=== PATIENT | male | born 1985 | race American Indian/Alaskan Native ===

== ENCOUNTER 2017-04-06 07:05 | Emergency (ER) | payer OTHER ==
[2017-04-06 07:06] VITALS: BMI 21.8
[2017-04-06 07:23] VITALS: RESP 20; O2SAT 98
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
--- NOTE | 2017-04-06 10:40 | US ---
HISTORY: pain TECHNIQUE: Realtime sonography through the scrotum with color and doppler flow. COMPARISON: None Available. FINDINGS: RIGHT TESTICLE: Measures 5.0 x 2.2 x 3.2 cm. Normal echotexture and flow. RIGHT EPIDIDYMIS: Normal size and morphology. LEFT TESTICLE: Measures 4.3 x 1.7 x 2.8 cm. Normal echotexture and flow. LEFT EPIDIDYMIS: Normal size and morphology. Incidental left epididymal cyst, 2 x 2 x 3 mm. HYDROCELE: None. VARICOCELE: Mild left varicocele noted. OTHER FINDINGS: None. IMPRESSION: Mild left varicocele. 3 mm left epididymal cyst. Otherwise unremarkable examination. No evidence of testicular torsion. No evidence of epididymo-orchitis.
[2017-04-06 10:46] LABS: URINE BILIRUBIN NEGATIVE (NEGATIVE); URINE BLOOD NEGATIVE (NEGATIVE); URINE COLOR Straw (YELLOW); URINE GLUCOSE (UA) NORMAL (Normal); URINE KETONE NEGATIVE (NEGATIVE); URINE LEUKOCYTE ESTERASE NEG Leu/uL (Negative); URINE PROTEIN NEGATIVE (NEGATIVE); URINE UROBILINOGEN NORMAL mg/dL (0.2-1.0); WBC URINE < 1 /hpf (0-5)
[2017-04-06 11:09] VITALS: BP 103/69; PULSE 64; TEMP 97.9
== END 2017-04-06 11:17 | disposition home or self-care (01) ==
LOC: C.ER 07:05
DX: N50.812 Left testicular pain (principal); Z72.0 Tobacco use

== ENCOUNTER 2017-07-30 02:31 | Emergency (ER) | payer MEDICAID, OTHER ==
--- NOTE | 2017-07-30 02:39 | C.PDOC ---
History Of Present Illness The patient is brought to the ED via EMS for evaluation after finding the patient publicly intoxicated. Patient reports he was drinking all day yesterday and admits to PCP use. He denies any suicidal or homicidal ideation. He offers no additional medical complaints. Time Seen by Provider: 07/30/17 02:38 History Per: Patient History/Exam Limitations: intoxication Onset/Duration Of Symptoms: Hrs Current Symptoms Are (Timing): Still Present Suicide/Self Injury Attempted (Context): None Modifying Factor(s): Alcohol, Other (PCP) Associated Symptoms: denies: Suicidal Thoughts, Suicidal Plan Involuntary Hold By: None Recent travel outside of the [place]: No Additional History Per: EMS Past Medical History Reviewed: Historical Data, Nursing Documentation, Vital Signs Vital Signs: Last Vital Signs Temp 97.4 F L 07/30/17 02:45 Pulse 70 07/30/17 02:45 Resp 20 07/30/17 02:45 BP 108/65 07/30/17 02:45 Pulse Ox 96 07/30/17 02:45 - Medical History PMH: No Chronic Diseases Denies: Depression, Chronic Kidney Disease Surgical History: No Surg Hx - [facility] Procedures INJECT/INFUSE NEC (12/10/14) Family History: States: No Known Family Hx - Social History Hx Tobacco Use: Yes Hx Alcohol Use: Yes Hx Substance Use: Yes (Abuses PCP) - Immunization History Hx Tetanus Toxoid Vaccination: No Hx Influenza Vaccination: No Hx Pneumococcal Vaccination: No Review Of Systems Constitutional: Negative for: Fever Cardiovascular: Negative for: Chest Pain Gastrointestinal: Negative for: Abdominal Pain Psych: Positive for: Other (Alcohol and PCP use). Negative for: Suicidal ideation Physical Exam - Physical Exam Appears: Other (visibly intoxicated) Skin: Warm, Dry Head: Normacephalic Eye(s): bilateral: Normal Inspection Oral Mucosa: Moist, Other (alcohol on breath) Neck: Supple Chest: Symmetrical Cardiovascular: Rhythm Regular Respiratory: No Rales, No Rhonchi, No Wheezing Gastrointestinal/Abdominal: Bowel Sounds, Soft, No Tenderness Neurological/Psych: Oriented x3, Normal Speech, Normal Cognition Gait: Steady ED Course And Treatment O2 Sat by Pulse Oximetry: 96 Pulse Ox Interpretation: Normal ED OBSERVATION Discharge: Yes Date of observation admission: 07/30/17 Time of observation admission: 02:39 - Observation admission statement Patient is being placed in observation because:: Patient acutely intoxicated - Goals of Observation Goals of observation are:: Pending clinical sobriety - Progress Note Progress Note: 07/30/17 03:09 Vitals stable. 07/30/17 05:06 Vitals stable. Disposition Counseled Patient/Family Regarding: Studies Performed, Diagnosis, Need For Followup - Disposition Referrals: [facility] at [facility] [Outside] Disposition: HOME/ ROUTINE Disposition Time: 02:39 Condition: FAIR Instructions: Alcohol Intoxication (DC) - Clinical Impression Clinical Impression: Alcohol intoxication, PCP (phencyclidine) abuse - Scribe Statement The provider has reviewed the documentation as recorded by the Kyle Cruz Provider Attestation: All medical record entries made by the Kyle were at my direction and personally dictated by me. I have reviewed the chart and agree that the record accurately reflects my personal performance of the history, physical exam, medical decision making, and the department course for this patient. I have also personally directed, reviewed, and agree with the discharge instructions and disposition.
[2017-07-30 02:40] VITALS: BMI 19.5
[2017-07-30 02:49] VITALS: RESP 20
[2017-07-30 06:13] VITALS: BP 136/78; PULSE 78; TEMP 97.6; O2SAT 100
== END 2017-07-30 07:27 | disposition home or self-care (01) ==
LOC: C.ER 02:31
DX: F10.129 Alcohol abuse with intoxication, unspecified (principal); F19.10 Other psychoactive substance abuse, uncomplicated

== ENCOUNTER 2017-09-02 02:38 | Emergency (ER) | payer OTHER ==
[2017-09-02 02:38] VITALS: BMI 19.5
[2017-09-02 02:54] VITALS: TEMP 97.8
--- NOTE | 2017-09-02 03:10 | C.PDOC ---
History Of Present Illness 31 year old male presents to the ED for evaluation of right-sided testicular pain which began this evening. Patient states his symptoms began after he lifted something heavy. Patient denies any other associated symptoms at this time. Patient has had multiple prior visits for the same complaints. Patient has history of alcohol and PCP abuse. R TEST PAIN THIS EVENING. PS ONSET AFTER LIFTING. NO OTHER ASSOC SX. MULT PRIOR ER VISITS FOR SAME COMPLAINTS. HO ETOH, PCP ABUSE EXAM VANDANA BAKER. NO TEST SWELL, NO HERNIA; TEST NORMAL LIE. NO INGUINAL SWELL, NONTEND. REMAINDER NEG Time Seen by Provider: 09/02/17 03:01 Chief Complaint (Nursing): Male Genitourinary History Per: Patient History/Exam Limitations: no limitations Onset/Duration Of Symptoms: Hrs Current Symptoms Are (Timing): Still Present Quality Of Discomfort: "Pain" Associated Symptoms: denies: Fever, Chills Additional History Per: Patient Past Medical History Reviewed: Historical Data, Nursing Documentation, Vital Signs Vital Signs: Last Vital Signs Temp 97.8 F 09/02/17 02:49 Pulse 73 09/02/17 02:49 Resp 18 09/02/17 02:49 BP 119/68 09/02/17 02:49 Pulse Ox 97 09/02/17 03:10 - Medical History PMH: No Chronic Diseases Surgical History: No Surg Hx - [facility] Procedures INJECT/INFUSE NEC (12/10/14) Family History: States: Unknown Family Hx - Social History Hx Tobacco Use: Yes Hx Alcohol Use: Yes Hx Substance Use: Yes (Abuses PCP) - Immunization History Hx Tetanus Toxoid Vaccination: No Hx Influenza Vaccination: No Hx Pneumococcal Vaccination: No Review Of Systems Constitutional: Negative for: Fever, Chills Genitourinary: Positive for: Other (right-sided testicular pain ) Physical Exam - Physical Exam Appears: Non-toxic, No Acute Distress Skin: Normal Color, Warm, Dry Eye(s): bilateral: Normal Inspection Oral Mucosa: Moist Neck: Supple Chest: Symmetrical, No Deformity Cardiovascular: Rhythm Regular Respiratory: Normal Breath Sounds Gastrointestinal/Abdominal: Soft, No Guarding, No Rebound, No Hernia Male Genital: Normal Inspection, No Testicular Tenderness, No Testicular Swelling, No Inguinal Tenderness, No Inguinal Swelling, Other (VANDANA baker. no hernia ) Neurological/Psych: Oriented x3, Normal Speech, Normal Cognition Gait: Steady ED Course And Treatment O2 Sat by Pulse Oximetry: 97 (on RA ) Pulse Ox Interpretation: Normal Progress - Data Reviewed Data Reviewed: Old records Disposition Counseled Patient/Family Regarding: Diagnosis, Need For Followup - Disposition Referrals: [facility] [Outside] [facility] [Outside] Disposition: HOME/ ROUTINE Disposition Time: 03:10 Condition: GOOD Instructions: Groin Strain (ED) Forms: [employer] (French) - Clinical Impression Clinical Impression: Groin strain - Scribe Statement The provider has reviewed the documentation as recorded by the Scribe (Tosha Montano) Provider Attestation: All medical record entries made by the Scribe were at my direction and personally dictated by me. I have reviewed the chart and agree that the record accurately reflects my personal performance of the history, physical exam, medical decision making, and the department course for this patient. I have also personally directed, reviewed, and agree with the discharge instructions and disposition.
[2017-09-02 03:34] VITALS: BP 118/70; PULSE 80; RESP 14; O2SAT 98
== END 2017-09-02 03:34 | disposition home or self-care (01) ==
LOC: C.ER 02:38
DX: S39.011A Strain of muscle, fascia and tendon of abdomen, initial encounter (principal); X50.0XXA Overexertion from strenuous movement or load, initial encounter

== ENCOUNTER 2017-11-17 00:29 | Emergency (ER) | payer MEDICAID, MEDICARE, OTHER ==
[2017-11-17 00:29] VITALS: BMI 21.8
[2017-11-17 00:44] VITALS: BP 131/82; PULSE 95; TEMP 98.7; O2SAT 98
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
[2017-11-17] MEDS ORDERED: Amoxicillin-Clav 500-125 mg Tab PO ONE (01:48)
[2017-11-17 02:02] VITALS: RESP 18
== END 2017-11-17 02:02 | disposition home or self-care (01) ==
LOC: C.ER 00:29
DX: S01.512D Laceration without foreign body of oral cavity, subsequent encounter (principal); Y04.0XXD Assault by unarmed brawl or fight, subsequent encounter

== ENCOUNTER 2018-02-18 12:05 | Emergency (ER) | payer SELFPAY ==
[2018-02-18 12:05] VITALS: BMI 21.8
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
[2018-02-18 15:47] VITALS: BP 128/76; PULSE 76; RESP 18; TEMP 98; O2SAT 98
== END 2018-02-18 16:01 | disposition home or self-care (01) ==
LOC: C.ER 12:05
DX: R51 Headache (principal); Z59.0 Homelessness

== ENCOUNTER 2018-05-10 17:28 | Emergency (ER) | payer SELFPAY ==
[2018-05-10 17:28] VITALS: BMI 21.8
[2018-05-10 17:58] VITALS: BP 124/80; PULSE 63; RESP 20; TEMP 97.9; O2SAT 100
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
== END 2018-05-10 18:34 ==
LOC: C.ER 17:28
DX: S30.1XXA Contusion of abdominal wall, initial encounter (principal); Y08.89XA Assault by other specified means, initial encounter; Y92.89 Other specified places as the place of occurrence of the external cause; Z65.3 Problems related to other legal circumstances

== ENCOUNTER 2018-05-27 23:21 | Emergency (ER) | payer SELFPAY ==
[2018-05-27 23:22] VITALS: BMI 21.8
[2018-05-27 23:35] VITALS: BP 121/72; PULSE 61; TEMP 97.8
[2018-05-28 00:09] VITALS: RESP 20; O2SAT 98
--- NOTE | 2018-06-01 11:30 | C.PDOC ---
History Of Present Illness LWOBS Time Seen by Provider: 05/27/18 23:51 Chief Complaint (Nursing): Medical Clearance Past Medical History Vital Signs: Last Vital Signs Temp 97.8 F 05/28/18 00:08 Pulse 61 05/28/18 00:08 Resp 20 05/28/18 00:08 BP 121/72 05/28/18 00:08 Pulse Ox 98 06/01/18 12:34 - Medical History PMH: Denies: Depression, Chronic Kidney Disease - [facility] Procedures INJECT/INFUSE NEC (12/10/14) Family History: States: Unknown Family Hx - Social History Hx Tobacco Use: Yes Hx Alcohol Use: No Hx Substance Use: No (PT DENIES) - Immunization History Hx Tetanus Toxoid Vaccination: No Hx Influenza Vaccination: No Hx Pneumococcal Vaccination: No ED Course And Treatment O2 Sat by Pulse Oximetry: 98 Disposition - Disposition Disposition: LEFT W/O BEING SEEN - ER ONLY Forms: [employer] (Wolof)
== END 2018-05-28 00:12 | disposition left against medical advice (07) ==
LOC: C.ER 23:21
DX: Z02.89 Encounter for other administrative examinations (principal); Z00.00 Encounter for general adult medical examination without abnormal findings
CPT/HCPCS: 82948; LWBS0

== ENCOUNTER 2018-08-30 06:39 | Emergency (ER) | payer SELFPAY ==
[2018-08-30 06:40] VITALS: BMI 21.8
[2018-08-30 07:38] LABS: BASO # 0.1 K/uL (0.0-0.2); BASO % 0.7 % (0.0-2.0); EOS # 0.4 K/uL (0.0-0.7); HEMOGLOBIN 14.3 g/dL (12.0-18.0); LYMPH % 42.9 % (20.0-40.0); MEAN CELL VOLUME 86.2 fL (80.0-94.0); MEAN CORPUSCULAR HEMOGLOBIN 28.6 pg (27.0-31.0); MEAN CORPUSCULAR HGB CONC 33.1 g/dL (33.0-37.0); MONO # 0.6 K/uL (0.0-0.8); MONO % 8.4 % (0.0-10.0); NRBC % 0.1 % (0.0-2.0); RBC 5.01 Mil/uL (4.40-5.90); RED CELL DISTRIBUTION WIDTH 14.4 % (11.5-14.5)
--- NOTE | 2018-08-30 07:46 | C.PDOC ---
History Of Present Illness 32 y/o homeless male, with no significant PMH, BIBA for evaluation of chest pain. Per EMS, patient was drinking, the police called when he tried to break into someone's car to sleep. Police attempted to arrest him. Patient states that he was not drinking, he was tired and was trying to find a place to rest. Denies having SOB, fever, chills, nausea, vomiting, and leg swelling. Time Seen by Provider: 08/30/18 07:06 Chief Complaint (Nursing): Chest Pain History Per: Patient, EMS History/Exam Limitations: no limitations Onset/Duration Of Symptoms: Hrs Current Symptoms Are (Timing): Still Present Severity: Moderate Past Medical History Reviewed: Historical Data, Nursing Documentation, Vital Signs Vital Signs: Last Vital Signs Temp 97.7 F 08/30/18 06:49 Pulse 61 08/30/18 07:09 Resp 20 08/30/18 06:49 BP 109/73 08/30/18 06:49 Pulse Ox 97 08/30/18 06:49 - Medical History PMH: No Chronic Diseases Denies: Depression, Chronic Kidney Disease Surgical History: No Surg Hx - [facility] Procedures INJECT/INFUSE NEC (12/10/14) Family History: States: No Known Family Hx - Social History Hx Tobacco Use: Yes Hx Alcohol Use: Yes Hx Substance Use: Yes - Immunization History Hx Tetanus Toxoid Vaccination: No Hx Influenza Vaccination: No Hx Pneumococcal Vaccination: No Review Of Systems Constitutional: Negative for: Fever, Chills Cardiovascular: Positive for: Chest Pain Respiratory: Negative for: Cough, Shortness of Breath Gastrointestinal: Negative for: Nausea, Vomiting Physical Exam - Physical Exam Appears: Non-toxic, No Acute Distress Skin: Normal Color, Warm, Dry Head: Atraumatic, Normacephalic Eye(s): bilateral: Normal Inspection Nose: Normal Oral Mucosa: Moist Neck: Supple Chest: Symmetrical Cardiovascular: Rhythm Regular Respiratory: Normal Breath Sounds, No Rales, No Rhonchi, No Wheezing Gastrointestinal/Abdominal: Normal Exam, Soft, No Tenderness, No Guarding, No Rebound Extremity: Normal ROM Neurological/Psych: Oriented x3, Normal Speech Gait: Steady ED Course And Treatment - Laboratory Results Result Diagrams: 08/30/18 07:27 08/30/18 07:27 ECG: Interpreted By Me, Viewed By Me ECG Rhythm: Sinus Bradycardia Rate From EC O2 Sat by Pulse Oximetry: 97 (RA) Pulse Ox Interpretation: Normal Medical Decision Making Medical Decision Making: Plan: * Labs * ECG * cardiac monitior Progress: Patient was sleeping throughout entire ED observation. Labs reviewed and unremarkable. EKG shows no ischemic changes. UDS +cannabis and PCP Based on negative EKG and lab findings and no acute changes on color television console monitor have very low suspicion for ACS. The patient was trying to avoid arrest and complained of pain to get seen in the hospital. 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 - Scribe Statement The provider has reviewed the documentation as recorded by the Kyle Sanches Provider Attestation All medical record entries made by the Nicoleibe were at my direction and personally dictated by me. I have reviewed the chart and agree that the record accurately reflects my personal performance of the history, physical exam, medical decision making, and the department course for this patient. I have also personally directed, reviewed, and agree with the discharge instructions and disposition.
[2018-08-30 07:57] LABS: ALB/GLOB RATIO 1.3 (1.0-2.1); ALBUMIN 4.1 g/dL (3.5-5.0); BLOOD UREA NITROGEN 17 mg/dL (9-20); GFR NON-AFRICAN AMERICAN > 60
[2018-08-30 07:58] LABS: ALT/SGPT 24 U/L (21-72); AST/SGOT 31 U/L (17-59)
[2018-08-30 08:41] LABS: URINE BILIRUBIN NEGATIVE (NEGATIVE); URINE BLOOD NEGATIVE (NEGATIVE); URINE CLARITY Clear (Clear); URINE COLOR Yellow (YELLOW); URINE GLUCOSE (UA) NORMAL (Normal); URINE LEUKOCYTE ESTERASE NEG Leu/uL (Negative); URINE PROTEIN NEGATIVE (NEGATIVE)
[2018-08-30 09:04] LABS: BARBITURATES, UR NEGATIVE (NEGATIVE); BENZODIAZEPINES, UR NEGATIVE (NEGATIVE); OPIATES, UR NEGATIVE (NEGATIVE)
[2018-08-30 09:25] LABS: PHENCYCLIDINE, UR POSITIVE (NEGATIVE)
[2018-08-30 09:46] VITALS: BP 110/70; PULSE 63; RESP 18; TEMP 98
[2018-08-30 12:55] VITALS: O2SAT 97
== END 2018-08-30 09:57 | disposition home or self-care (01) ==
LOC: C.ER 06:39
DX: F16.10 Hallucinogen abuse, uncomplicated (principal); F12.10 Cannabis abuse, uncomplicated
CPT/HCPCS: 80053; 81001; 84484; 85025; 93005; 99285; G0480